=== PATIENT | male | born 2005 | race Caucasian/White ===

== ENCOUNTER 2024-08-05 21:02 | Emergency (ER) | payer OTHER ==
[~2024-08-05] VITALS: Ht 182.9 cm; Wt 96.2 kg
[2024-08-05] MEDS: ACETAMINOPHEN 500 MG TAB PO ONE (23:41)
[2024-08-06] MEDS ORDERED: ACET-897 PO (00:16)
[2024-08-06 00:21] VITALS: BP 118/69; TEMP 98; O2SAT 99
== END 2024-08-06 00:22 | disposition home or self-care (01) ==
LOC: M ED 21:02
DX: S00.83XA Contusion of other part of head, initial encounter (principal); W22.8XXA Striking against or struck by other objects, initial encounter; Y92.009 Unspecified place in unspecified non-institutional (private) residence as the place of occurrence of the external cause; Y93.89 Activity, other specified; Y99.9 Unspecified external cause status

== ENCOUNTER 2024-08-13 09:55 | Emergency (ER) | payer OTHER ==
[~2024-08-13] VITALS: Ht 182.9 cm; Wt 93.6 kg
[~2024-08-13 09:55] MED LIST: ACET-897 PO
[2024-08-13] MEDS ORDERED: SERT25TA21 (10:00)
[2024-08-13] MEDS ORDERED: CEPH500C PO (13:32)
[2024-08-13 13:35] VITALS: BP 135/79; TEMP 98.9; O2SAT 99
[2024-08-13] MEDS: CEPHALEXIN 500 MG CAP PO ONE (13:39)
== END 2024-08-13 13:41 | disposition home or self-care (01) ==
LOC: M ED 09:55
DX: L03.113 Cellulitis of right upper limb (principal); F41.9 Anxiety disorder, unspecified

== ENCOUNTER 2024-08-21 16:31 | Emergency (ER) | payer OTHER ==
[~2024-08-21] VITALS: Ht 185.4 cm; Wt 96.4 kg
[~2024-08-21 16:31] MED LIST changes: +CEPH500C PO; +SERT25TA21
[2024-08-21] MEDS: ACETAMINOPHEN 500 MG TAB PO ONE (18:16)
[2024-08-21 18:40] LABS: BASO % 0.5 % (0.0-1.0); EOS # 0.1 10^3/uL (0.0-0.5); EOS % 1.6 % (0.0-3.0); HEMATOCRIT 46.6 % (42.0-52.0); HEMOGLOBIN 16.2 g/dl (13.5-17.5); LYMPH # 2.7 10^3/uL (1.5-5.0); LYMPH % 30.6 % (24.0-44.0); MEAN CORPUSCULAR HEMOGLOBIN 30.1 pg (27.0-33.0); MEAN CORPUSCULAR HGB CONC 34.8 g/dl (32.0-36.5); MEAN CORPUSCULAR VOLUME 86.6 fl (80.0-96.0); MONO # 0.6 10^3/uL (0.0-0.8); MONO % 7.1 % (2.0-8.0); NEUTROPHILS # 5.2 10^3/uL (1.5-8.5); NEUTROPHILS % 59.9 % (36.0-66.0); PLATELET COUNT, AUTOMATED 185 10^3/uL (150-450); RED BLOOD COUNT 5.38 10^6/uL (4.30-6.10); WHITE BLOOD COUNT 8.7 10^3/uL (4.0-10.0)
[2024-08-21 19:05] LABS: BARBITURATES URINE NEGATIVE (NEGATIVE); COCAINE METABOLITE URINE NEGATIVE (NEGATIVE); METHADONE URINE NEGATIVE (NEGATIVE); OPIATES URINE NEGATIVE (NEGATIVE); PHENCYCLIDINE URINE NEGATIVE (NEGATIVE)
[2024-08-21 19:06] LABS: AMPHETAMINES LEVEL URINE NEGATIVE (NEGATIVE); BENZODIAZEPINES URINE NEGATIVE (NEGATIVE); CANNABINOIDS URINE NEGATIVE (NEGATIVE)
[2024-08-21 20:00] VITALS: BP 124/69; TEMP 98.4; O2SAT 99
== END 2024-08-21 20:04 | disposition home or self-care (01) ==
LOC: M ED 16:31
DX: R51.9 Headache, unspecified (principal); F41.9 Anxiety disorder, unspecified; F32.A Depression, unspecified; Z79.899 Other long term (current) drug therapy

== ENCOUNTER 2025-01-19 23:28 | Emergency (ER) | payer OTHER ==
[~2025-01-19] VITALS: Ht 185.4 cm; Wt 99.9 kg
[2025-01-20 03:56] VITALS: BP 126/60; TEMP 97.9; O2SAT 98
== END 2025-01-20 05:23 | disposition left against medical advice (07) ==
LOC: M ED 23:28
DX: Z53.21 Procedure and treatment not carried out due to patient leaving prior to being seen by health care provider (principal)